=== PATIENT | male | born 1995 | race Caucasian/White ===

== ENCOUNTER 2017-04-10 07:45 | Emergency (ER) | payer SELFPAY ==
[2017-04-10] MEDS ORDERED: Sodium Chloride 0.9% 1,000 ML IV ONE (08:05)
[2017-04-10] MEDS ORDERED: Morphine 2 MG/ML Syringe IVPUSH ONE (08:05)
[2017-04-10] MEDS ORDERED: Ondansetron 4 MG/2 ML SDV IVPUSH ONE (08:05)
[2017-04-10] MEDS ORDERED: Diphtheria,Pertussis(Acell),Tetanus Vaccine 0.5 ML Syringe IM ONE (08:06)
[2017-04-10] MEDS ORDERED: Lidocaine 4% Top Soln 50 ML Bottle MUCMEM ONE (08:07)
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
[2017-04-10] MEDS ORDERED: Lidocaine 2% Viscous Solution 15 ML Cup PO ONE (08:10)
[2017-04-10] MEDS ORDERED: Morphine 10 MG/ML Syringe IVPUSH ONE (08:21)
[2017-04-10 08:37] LABS: CHLORIDE,CL 105 mmol/L (98-110); SODIUM,NA 141 mmol/L (136-146)
[2017-04-10] MEDS ORDERED: Iopamidol 755 Mg/ML 100 ML Bottle IVPUSH STA (08:55)
[2017-04-10 09:33] VITALS: BP 130/86
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
--- NOTE | 2017-04-12 10:42 | CR ---
EXAM DATE: 04/10/17 PATIENT'S AGE: 21 Patient: LIZ BALDERRAMA Facility: [place], [place] Site . Site : 1995 Study: XRay Shoulder Right [id number] clavicle-04/10/2017 9:21:31 AM Ordering Physician: Donaldo Mera Final Report: INDICATION: Rule out right clavicle fracture related to trauma TECHNIQUE: Two views of the right clavicle are submitted. COMPARISON: Chest CT from today. FINDINGS: Faint linear lucency is seen along the mid right clavicle and a nondisplaced clavicle fracture is suspected. The right sternoclavicular and acromioclavicular joints are anatomically aligned. IMPRESSION: Nondisplaced fracture of the mid right clavicle. Dictated by Pasquale Grimes MD @ 04/10/2017 9:28:22 AM Dictated by: Pasquale Grimes MD @ 04/10/2017 09:28:30 (Electronic Signature) Report Signed by Proxy. [facility]
== END 2017-04-10 09:40 | disposition home or self-care (01) ==
LOC: MW.ED 07:45
DX: S42.034A Nondisplaced fracture of lateral end of right clavicle, initial encounter for closed fracture (principal); S80.811A Abrasion, right lower leg, initial encounter; S30.810A Abrasion of lower back and pelvis, initial encounter; S20.412A Abrasion of left back wall of thorax, initial encounter; S20.411A Abrasion of right back wall of thorax, initial encounter; Z23 Encounter for immunization; V29.9XXA Motorcycle rider (driver) (passenger) injured in unspecified traffic accident, initial encounter
CPT/HCPCS: 36415; 71260; 73000; 73030; 74177; 80053; 81001; 83690; 85025; 86850; 86900; 86901; 90471; 90715; 96361; 96374; 96375; 99284; A4566; A9270; J2270; J2405; J7040; Q9967

== ENCOUNTER 2017-04-15 11:43 | Emergency (ER) | payer SELFPAY ==
--- NOTE | 2017-04-15 12:15 | EDM.PDOC ---
ED HPI GENERAL MEDICAL PROBLEM - General Chief Complaint: General Stated Complaint: RIGHT ARM PAIN Time Seen by Provider: 04/15/17 12:10 Source of Information: Reports: Patient History Limitations: Reports: No Limitations - History of Present Illness INITIAL COMMENTS - FREE TEXT/NARRATIVE: History of present illness: [21-year-old male presenting with complaints of continued clavicle pain. Patient seems to be confused about need for follow-up and he had completed the prescription he was provided 5 days ago of 16 tramadol and he continues to have pain.] Review of systems: As per history of present illness and below otherwise all systems reviewed and negative. Past medical history: As per history of present illness and as reviewed below otherwise noncontributory. Surgical history: As per history of present illness and as reviewed below otherwise noncontributory. Social history: No reported history of drug or alcohol abuse. Family history: As per history of present illness and as reviewed below otherwise noncontributory. Physical exam: HEENT: Atraumatic, normocephalic, pupils reactive, negative for conjunctival pallor or scleral icterus, mucous membranes moist, throat clear, neck supple, nontender, trachea midline. Lungs: Clear to auscultation, breath sounds equal bilaterally, chest nontender. Heart: S1S2, regular, negative for clicks, rubs, or JVD. Abdomen: Soft, nondistended, nontender. Negative for masses or hepatosplenomegaly. Negative for costovertebral tenderness. Pelvis: Stable nontender. Genitourinary: Deferred. Rectal: Deferred. Extremities: Left arm in sling with guarding and limited range of motion negative for cords or calf pain. Neurovascular unremarkable. Neuro: Awake, alert, oriented. Cranial nerves II through XII unremarkable. Cerebellum unremarkable. Motor and sensory unremarkable throughout. Exam nonfocal. Diagnostics: [] Therapeutics: [] Impression: [Clavicular pain continued] Plan: [Referring a pain medicine follow-up with ORIFabrizio L] Definitive disposition and diagnosis as appropriate pending reevaluation and review of above. Right Collar Pain Score (Numeric/FACES): 10 - Related Data Allergies Allergy/AdvReac Type Severity Reaction Status Date / Time No Known Allergies Allergy Verified 04/15/17 11:54 Home Meds: Home Meds traMADol [Ultram] 50 mg PO Q6H PRN #16 tablet 04/10/17 [Rx] Past Medical History HEENT History: Reports: None Cardiovascular History: Reports: None Respiratory History: Reports: None Gastrointestinal History: Reports: None Genitourinary History: Reports: None Musculoskeletal History: Reports: None Neurological History: Reports: None Psychiatric History: Reports: None Endocrine/Metabolic History: Reports: None Hematologic History: Reports: None Immunologic History: Reports: None Oncologic (Cancer) History: Reports: None Dermatologic History: Reports: None - Infectious Disease History Infectious Disease History: Reports: None - Past Surgical History HEENT Surgical History: Reports: Naso-Sinus Surgery Musculoskeletal Surgical History: Reports: Other (See Below) Other Musculoskeletal Surgeries/Procedures:: fracture to right arm Social & Family History - Family History Family Medical History: Noncontributory - Tobacco Use Smoking Status *Q: Never Smoker - Recreational Drug Use Recreational Drug Use: No ED ROS GENERAL - Review of Systems Review Of Systems: See Below (See history of present illness) ED EXAM, GENERAL - Physical Exam Exam: See Below (See history of present illness) Course - Vital Signs Last Recorded V/S: Last Vital Signs Temp 36.6 C 04/15/17 11:54 Pulse 84 04/15/17 11:54 Resp 18 04/15/17 11:54 BP 141/95 H 04/15/17 11:54 Pulse Ox 94 L 04/15/17 11:54 Departure - Departure Time of Disposition: 12:16 Disposition: Home, Self-Care 01 Condition: Good Clinical Impression: Right clavicle fracture Qualifiers: Encounter type: initial encounter Clavicle location: lateral end Fracture type : closed Fracture alignment: nondisplaced Qualified Code(s): S42.034A - Nondisplaced fracture of lateral end of right clavicle, initial encounter for closed fracture - Discharge Information Forms: ED Department Discharge Additional Instructions: The following information is given to patients seen in the emergency department who are being discharged to home. This information is to outline your options for follow-up care. We provide all patients seen in our emergency department with a follow-up referral. The need for follow-up, as well as the timing and circumstances, are variable depending upon the specifics of your emergency department visit. If you don't have a primary care physician on staff, we will provide you with a referral. We always advise you to contact your personal physician following an emergency department visit to inform them of the circumstance of the visit and for follow-up with them and/or the need for any referrals to a consulting specialist. The emergency department will also refer you to a specialist when appropriate. This referral assures that you have the opportunity for follow-up care with a specialist. All of these measure are taken in an effort to provide you with optimal care, which includes your follow-up. Under all circumstances we always encourage you to contact your private physician who remains a resource for coordinating your care. When calling for follow-up care, please make the office aware that this follow-up is from your recent emergency room visit. If for any reason you are refused follow-up, please contact the [facility] Emergency Department at and asked to speak to the emergency department charge nurse. Follow-up with [facility] as referral provided Take medication as directed Follow-up with the primary care provider in 1- 2 days needing to establish care is paramount Return to ED as needed as discussed
[2017-04-15 12:26] VITALS: BP 136/88
== END 2017-04-15 12:29 | disposition home or self-care (01) ==
LOC: MW.ED 11:43
DX: S42.034A Nondisplaced fracture of lateral end of right clavicle, initial encounter for closed fracture (principal); Z98.890 Other specified postprocedural states; X58.XXXA Exposure to other specified factors, initial encounter
CPT/HCPCS: 99282; 99284